=== PATIENT | female | born 1940 ===

== ENCOUNTER 2017-09-24 16:13 | Emergency (ER) | payer MEDICARE, MEDICAID ==
[2017-09-24 16:13] VITALS: PULSE 103; BMI 21.2
--- NOTE | 2017-09-24 17:43 | ED PDOC ---
HPI: Abdomen Time Seen by Provider: 09/24/17 16:40 Chief Complaint (Nursing): Abdominal Pain Chief Complaint (Provider): Abdominal pain History Per: Patient, Family History/Exam Limitations: no limitations Additional Complaint(s): Pt arrives with son who states patient c/o L sided back and abominal pain X 2 weeks, intermittent, associated with diarrhea. Denies fever, nausea, vomiting, symptoms. Also c/o swelling to both feet X 2 weeks. Denies CP, SOB. Past Medical History Reviewed: Nursing Documentation, Vital Signs Vital Signs: Last Vital Signs Temp 98.5 F 09/24/17 21:32 Pulse 98 H 09/24/17 21:32 Resp 17 09/24/17 21:32 BP 154/90 H 09/24/17 21:32 Pulse Ox 100 09/24/17 21:32 - Medical History PMH: Arthritis, Atrial Fibrillation, Back Problems, Cardia Arrhythmia (a fib), CHF, COPD, Diabetes (Has not taken medications in a while. ), Fractures (Lumbar vertebrae, right hip), HTN, Osteoporosis Denies: Asthma, Bronchitis, Emphysema, HIV, Pneumonia, Pulmonary Embolism, Chronic Kidney Disease, Sleep Apnea - Surgical History Surgical History: Back Surgery, - Family History Family History: States: Unknown Family Hx - Living Arrangements Living Arrangements: With Family - Social History Current smoker - smoking cessation education provided: No Alcohol: None - Immunization History Hx Tetanus Toxoid Vaccination: Yes (two years ago) Hx Influenza Vaccination: Yes Hx Pneumococcal Vaccination: No - Home Medications Home Medications: Ambulatory Orders Medication Instructions Recorded Digoxin [Lanoxin] 0.25 mg PO DAILY #0 tab 09/26/15 Acetaminophen/Oxycodone Hydr 1 tab PO Q8H PRN 11/07/15 [Percocet 10/325 mg Tab] Rivaroxaban [Xarelto] 20 mg PO DAILY 11/07/15 Metoprolol Tartrate [Lopressor] 50 mg PO Q12H #60 tab 11/08/15 Mirtazapine [Remeron Soltab] 30 mg PO HS #30 odt 11/08/15 Potassium Chloride [K-Dur 20] 20 meq PO DAILY #30 tab 11/08/15 Dicyclomine [Bentyl] 20 mg PO QID PRN #10 tab 09/24/17 - Allergies Allergies/Adverse Reactions: Allergies Allergy/AdvReac Type Severity Reaction Status Date / Time No Known Allergies Allergy Verified 09/24/17 16:25 Review of Systems Constitutional: Negative for: Fever, Chills Cardiovascular: Negative for: Chest Pain, Palpitations Respiratory: Negative for: Cough, Shortness of Breath Gastrointestinal: Positive for: Abdominal Pain. Negative for: Nausea, Vomiting , Diarrhea Genitourinary Female: Negative for: Dysuria, Hematuria Musculoskeletal: Negative for: Leg Pain Skin: Negative for: Rash, Lesions Neurological: Negative for: Headache Physical Exam - Reviewed Nursing Documentation Reviewed: Yes Vital Signs Reviewed: Yes - Physical Exam Appears: Positive for: Well, No Acute Distress Head Exam: Positive for: ATRAUMATIC, NORMAL INSPECTION Skin: Positive for: Normal Color, Warm, Dry Eye Exam: Positive for: Normal appearance, EOMI, PERRL Cardiovascular/Chest: Positive for: Regular Rate, Rhythm Respiratory: Positive for: Normal Breath Sounds Gastrointestinal/Abdominal: Positive for: Bowel Sounds, Soft, Tenderness ( Generalized). Negative for: Distended, Guarding, Rebound Back: Positive for: Normal Inspection Extremity: Positive for: Normal ROM, Pedal Edema Neurologic/Psych: Positive for: Alert, Oriented - Laboratory Results Result Diagrams: 09/24/17 17:30 09/24/17 17:30 - ECG Interpretation Of ECG: A fib. O2 Sat by Pulse Oximetry: 97 Medical Decision Making Medical Decision Makin yo female with abdominal pain X feet swelling. - labs - CT abd/pelvis - EKG - CXR - Doppler ultrasound Accession No. : [id number] Patient Name / ID : GERRY IRIS / [id number] Exam Date : 09/24/2017 17:10:44 ( Approved ) Study Comment : Sex / Age : F / 77Y Creator : Tapan Ruiz MD Dictator : Tapan Ruiz MD [employer] Ramp Attendant : Guide Tour : Tapan Ruiz MD Approver2 : Report Date : 09/24/2017 17:53:21 My Comment : Date of service: 09/24/2017 HISTORY: Abd pain COMPARISON: 04/30/2015. TECHNIQUE: Chest PA and lateral FINDINGS: LUNGS: Hyperinflation, manifestations of COPD. No active pulmonary disease. PLEURA: No significant pleural effusion identified. No pneumothorax apparent. CARDIOVASCULAR: Cardiomegaly. No evidence of acute, significant cardiovascular disease. OSSEOUS STRUCTURES: No significant abnormalities. Evidence of prior kyphoplasties unchanged lower thoracic and lumbar spine. VISUALIZED UPPER ABDOMEN: Normal. OTHER FINDINGS: None. IMPRESSION: No active pulmonary disease. Cardiomegaly without CHF. Accession No. : [id number] Patient Name / ID : GERRY IRIS / [id number] Exam Date : 09/24/2017 18:19:10 ( Approved ) Study Comment : Sex / Age : F / 77Y Creator : Matthew Morse MD Dictator : Matthew Morse MD Airport Ramp Attendant : Guide Tour : Matthew Morse MD Approver2 : Report Date : 09/25/2017 10:12:31 My Comment : Date of service: 09/24/2017 PROCEDURE: CT Abdomen and Pelvis with contrast HISTORY: Abd pain COMPARISON: Abdomen pelvis CT with contrast 11/07/2015. TECHNIQUE: Following the intravenous administration of iodinated contrast material, a CT examination of the abdomen and pelvis performed from the domes of the diaphragms to the symphysis pubis with reformatted datasets provided in axial, sagittal and coronal planes. Oral contrast was not administered as per referring physician request. Contrast dose: Omnipaque 300, 90 cc Radiation dose: Total exam DLP = 405.83 mGy-cm. This CT exam was performed using one or more of the following dose reduction techniques: Automated exposure control, adjustment of the mA and/or kV according to patient size, and/or use of iterative reconstruction technique. FINDINGS: LOWER THORAX: Prominent cardiomegaly reiterated with limited bilateral basilar ground-glass opacity. Borderline pulmonary vascular congestion. No pleural or pericardial effusion evident grossly. Increased fatty density, both intra and extra abdominal may reflect anasarca. Clinically correlate. LIVER: Limited nodularity of the surface of liver again suggests mild cirrhosis. . No gross lesion or ductal dilatation. GALLBLADDER AND BILE DUCTS: Prior cholecystectomy reiterated. Likely related limited dilatation of central intrahepatic biliary ducts. Common bile duct appears upper limits normal caliber. No radiodense choledocholithiasis associated. PANCREAS: Evident. SPLEEN: Unremarkable. ADRENALS: Unremarkable. No mass. KIDNEYS AND URETERS: Unremarkable. No hydronephrosis. No solid mass. VASCULATURE: Unremarkable. No aortic aneurysm. BOWEL: Unremarkable appearing. No obstruction. No pericolic or perienteric reactive change. Poor evaluation of the bowel correa due to lack of oral and intravenous contrast. APPENDIX: Normal appendix. PERITONEUM: Unremarkable. No free fluid. No free air. LYMPH NODES: Unremarkable. No enlarged lymph nodes. BLADDER: Unremarkable. REPRODUCTIVE: Unremarkable. BONES: No acute fracture. OTHER FINDINGS: None. IMPRESSION: No definite acute abdominal or pelvic findings appreciated. Mild hepatic cirrhosis again suggested. Incidental active CHF/anasarca suspected. Accession No. : [id number] Patient Name / ID : GERRY MARCELO / [id number] Exam Date : 09/24/2017 19:36:04 ( Approved ) Study Comment : Sex / Age : F / 77Y Creator : Tapan Ruiz MD Dictator : Tapan Ruiz MD Airport Ramp Attendant : Guide Tour : Tapan Ruiz MD Approver2 : Report Date : 09/25/2017 10:25:34 My Comment : Date of service: 09/24/2017 PROCEDURE: Bilateral lower extremity venous duplex Doppler. HISTORY: BLE swelling COMPARISON: None available. TECHNIQUE: Bilateral common femoral, superficial femoral, popliteal and posterior tibial veins were evaluated. Flow was assessed with color Doppler, compressibility, assessment of phasic flow and augmentation response. FINDINGS: COMMON FEMORAL VEIN: Right CFV: Unremarkable. Left CFV: Unremarkable. SUPERFICIAL FEMORAL VEIN: Right SFV: Unremarkable. Left SFV: Unremarkable. POPLITEAL VEIN: Right Popliteal: Unremarkable. Left Popliteal: Unremarkable. POSTERIOR TIBIAL VEIN: Right PTV: Unremarkable. Left PTV: Unremarkable. OTHER FINDINGS: None. IMPRESSION: No evidence of deep venous thrombosis. Disposition - Clinical Impression Clinical Impression: Abdominal pain, Pedal edema - Disposition Referrals: [facility] [Outside] [facility] [Outside] Disposition: Routine/Home Disposition Time: 21:15 Condition: STABLE Prescriptions: Dicyclomine [Bentyl] 20 mg PO QID PRN #10 tab PRN Reason: Pain, Moderate (4-7) Instructions: Dependent Edema (DC), Acute Abdomen (Belly Pain) Forms: [facility] (English) Print Language: SWEDISH
[2017-09-24] MEDS ORDERED: Sodium Chloride 0.9% 50 ML IV ONE (17:51)
[2017-09-24] MEDS ORDERED: Iohexol 300 100 ML IJ ONE (17:51)
--- NOTE | 2017-09-24 17:54 | RAD ---
Date of service: 09/24/2017 HISTORY: Abd pain COMPARISON: 04/30/2015. TECHNIQUE: Chest PA and lateral FINDINGS: LUNGS: Hyperinflation, manifestations of COPD. No active pulmonary disease. PLEURA: No significant pleural effusion identified. No pneumothorax apparent. CARDIOVASCULAR: Cardiomegaly. No evidence of acute, significant cardiovascular disease. OSSEOUS STRUCTURES: No significant abnormalities. Evidence of prior kyphoplasties unchanged lower thoracic and lumbar spine. VISUALIZED UPPER ABDOMEN: Normal. OTHER FINDINGS: None. IMPRESSION: No active pulmonary disease. Cardiomegaly without CHF.
[2017-09-24 17:55] LABS: BASO % 0.7 % (0.0-2.0); EOS # 0.1 K/uL (0.0-0.7); EOS % 1.6 % (0.0-4.0); HEMOGLOBIN 11.4 g/dL (12.0-16.0); INR 1.2; LYMPH # 2.1 K/uL (1.0-4.3); LYMPH % 46.5 % (20.0-40.0); MEAN CELL VOLUME 93.8 fl (81.0-99.0); MEAN CORPUSCULAR HEMOGLOBIN 30.1 pg (27.0-31.0); MEAN CORPUSCULAR HGB CONC 32.1 g/dL (33.0-37.0); MEAN PLATELET VOLUME 7.7 fl (7.2-11.7); MONO # 0.6 K/uL (0.0-0.8); MONO % 13.8 % (0.0-10.0); NEUT # 1.7 K/uL (1.8-7.0); NEUT % 37.4 % (50.0-75.0); NRBC % 0.1 % (0.0-0.0); PROTHROMBIN TIME 13.1 Seconds (9.8-13.1); RBC 3.79 Mil/uL (3.80-5.20); RED CELL DISTRIBUTION WIDTH 14.2 % (11.5-14.5); WHITE BLOOD COUNT 4.6 K/uL (4.8-10.8)
[2017-09-24 17:57] LABS: PARTIAL THROMBOPLASTIN TIME 34.2 Seconds (25.6-37.1)
[2017-09-24 18:05] LABS: ALB/GLOB RATIO 0.8 (1.0-2.1); ALBUMIN 3.6 g/dL (3.5-5.0); ALT/SGPT 27 U/L (9-52); AST/SGOT 49 U/L (14-36); BLOOD UREA NITROGEN 12 mg/dl (7-17); CALCIUM 8.6 mg/dL (8.4-10.2); GFR AFRICAN-AMERICAN > 60; GFR NON-AFRICAN AMERICAN > 60; LIPASE 332 U/L (23-300)
[2017-09-24 20:31] LABS: SQUAMOUS EPITHIAL 1 /hpf (0-5); URINE BILIRUBIN NEGATIVE (NEGATIVE); URINE BLOOD SMALL (NEGATIVE); URINE CLARITY CLEAR (Clear); URINE COLOR STRAW (YELLOW); URINE GLUCOSE (UA) NEG (Normal); URINE LEUKOCYTE ESTERASE NEG Leu/uL (Negative); URINE PROTEIN NEGATIVE (NEGATIVE); URINE UROBILINOGEN 0.2-1.0 mg/dL (0.2-1.0)
[2017-09-24 21:33] VITALS: BP 154/90; PULSE 98; RESP 17; TEMP 98.5
--- NOTE | 2017-09-25 06:09 | CARD ---
APPROVED REPORT Date of service: 09/24/2017 <Conclusion> Atrial fibrillation Abnormal ECG
--- NOTE | 2017-09-25 10:14 | CT ---
Date of service: 09/24/2017 PROCEDURE: CT Abdomen and Pelvis with contrast HISTORY: Abd pain COMPARISON: Abdomen pelvis CT with contrast 11/07/2015. TECHNIQUE: Following the intravenous administration of iodinated contrast material, a CT examination of the abdomen and pelvis performed from the domes of the diaphragms to the symphysis pubis with reformatted datasets provided in axial, sagittal and coronal planes. Oral contrast was not administered as per referring physician request. Contrast dose: Omnipaque 300, 90 cc Radiation dose: Total exam DLP = 405.83 mGy-cm. This CT exam was performed using one or more of the following dose reduction techniques: Automated exposure control, adjustment of the mA and/or kV according to patient size, and/or use of iterative reconstruction technique. FINDINGS: LOWER THORAX: Prominent cardiomegaly reiterated with limited bilateral basilar ground-glass opacity. Borderline pulmonary vascular congestion. No pleural or pericardial effusion evident grossly. Increased fatty density, both intra and extra abdominal may reflect anasarca. Clinically correlate. LIVER: Limited nodularity of the surface of liver again suggests mild cirrhosis. . No gross lesion or ductal dilatation. GALLBLADDER AND BILE DUCTS: Prior cholecystectomy reiterated. Likely related limited dilatation of central intrahepatic biliary ducts. Common bile duct appears upper limits normal caliber. No radiodense choledocholithiasis associated. PANCREAS: Evident. SPLEEN: Unremarkable. ADRENALS: Unremarkable. No mass. KIDNEYS AND URETERS: Unremarkable. No hydronephrosis. No solid mass. VASCULATURE: Unremarkable. No aortic aneurysm. BOWEL: Unremarkable appearing. No obstruction. No pericolic or perienteric reactive change. Poor evaluation of the bowel correa due to lack of oral and intravenous contrast. APPENDIX: Normal appendix. PERITONEUM: Unremarkable. No free fluid. No free air. LYMPH NODES: Unremarkable. No enlarged lymph nodes. BLADDER: Unremarkable. REPRODUCTIVE: Unremarkable. BONES: No acute fracture. OTHER FINDINGS: None. IMPRESSION: No definite acute abdominal or pelvic findings appreciated. Mild hepatic cirrhosis again suggested. Incidental active CHF/anasarca suspected.
--- NOTE | 2017-09-25 10:27 | US ---
Date of service: 09/24/2017 PROCEDURE: Bilateral lower extremity venous duplex Doppler. HISTORY: BLE swelling COMPARISON: None available. TECHNIQUE: Bilateral common femoral, superficial femoral, popliteal and posterior tibial veins were evaluated. Flow was assessed with color Doppler, compressibility, assessment of phasic flow and augmentation response. FINDINGS: COMMON FEMORAL VEIN: Right CFV: Unremarkable. Left CFV: Unremarkable. SUPERFICIAL FEMORAL VEIN: Right SFV: Unremarkable. Left SFV: Unremarkable. POPLITEAL VEIN: Right Popliteal: Unremarkable. Left Popliteal: Unremarkable. POSTERIOR TIBIAL VEIN: Right PTV: Unremarkable. Left PTV: Unremarkable. OTHER FINDINGS: None. IMPRESSION: No evidence of deep venous thrombosis. Concordant findings (preliminary report) provided by [facility].
[2017-09-27 12:39] VITALS: O2SAT 97
== END 2017-09-24 21:32 | disposition home or self-care (01) ==
LOC: H.ER 16:13
DX: R10.9 Unspecified abdominal pain (principal); R60.9 Edema, unspecified; E11.9 Type 2 diabetes mellitus without complications; I11.0 Hypertensive heart disease with heart failure; I50.9 Heart failure, unspecified; I48.91 Unspecified atrial fibrillation; J44.9 Chronic obstructive pulmonary disease, unspecified; M81.0 Age-related osteoporosis without current pathological fracture
CPT/HCPCS: 71046; 74177; 80053; 81003; 83690; 85025; 85610; 85730; 93005; 93970; 99283; Q9967

== ENCOUNTER 2018-06-29 00:25 | Emergency (ER) | payer MEDICARE, MEDICAID ==
[2018-06-29 00:26] VITALS: PULSE 103
--- NOTE | 2018-06-29 00:33 | ED PDOC ---
HPI:STROKE - Time Time: 00:28 - Historian Historian: Family - Chief Complaint Chief Complaint: Weakness, Mental status change - Onset Date: 06/29/18 Onset: Just prior to presenting (30 minutes) - Timing Timing: Currently Symptomatic - Location Location: Mental Status, Speech Locate left: Upper extremity - Associated Symptoms Associated symptoms:: Anticoagulant use (eliquis, aspirin but unclear if taking it because bottle was filled in april - and most of the bottle is full ) - Notes: Notes:: 77yo female with history of Afib, dementia, brought to ER by EMS and accompanied by son for evaluation of sudden onset change in mental status and speech. Per son, him and the patient were speaking normally when suddenly the patient started to "mumble incoherently" approximately 30 minutes prior to arrival. He also states the patient had left sided upper extremity weakness. NIHSS Stroke Scale - Date/Time Evaluation Performed Date Performed: 06/29/18 Time Performed: 00:28 When Was NIHSS Performed: Code Stroke - How Severe is the Stroke Level of Consciousness: 0=Alert (speaking jibberish) LOC to Questions: 2=Neither correct LOC to commands: 1=Obeys one correctly Best Gaze: 1=Partial gaze palsy Visual: 0=No visual loss Facial: 1=Minor asymmetry Motor Arm - Left: 2=Falls before 10 sec Motor Arm - Right: 0=No drift Motor Leg - Left: 1=Drift before 5 sec Motor Leg - Right: 0=No drift Limb Ataxia: 0=Absent Sensory: 0=Normal Best Language: 1=Mild to moderate aphasia Dysarthia: 1=Mild to moderate slurring Extinction & Inattention (Neglect): 1=Partial neglect (mild sachin-attention) Score: 11 rTPA Inclusion/Exclusion - Refusal of Treatment Patient Refused Treatment: No - Exclusion Criteria for Altepase Bleeding Diathesis Including but not limited to: Current use of oral anticoagulants w/ PT greater than 15 seconds - Warning to TPA With Conditions Condition: Recent intracranial hemorrhage Past Medical History Reviewed: Historical Data (as per records and family Tommy the son brought pt in, initial history as per him), Nursing Documentation, Vital Signs Primary Care Provider: Jj Miramontes - Medical History PMH: Arthritis, Atrial Fibrillation, Back Problems, Cardia Arrhythmia (a fib), CHF, COPD, Diabetes (Has not taken medications in a while. ), Fractures (Lumbar vertebrae, right hip), HTN, Osteoporosis Denies: Asthma, Bronchitis, Emphysema, HIV, Pneumonia, Pulmonary Embolism, Chronic Kidney Disease, Sleep Apnea - Surgical History Surgical History: Back Surgery, - Family History Family History: States: Unknown Family Hx - Living Arrangements Living Arrangements: With Family - Social History Current smoker - smoking cessation education provided: No - Immunization History Hx Tetanus Toxoid Vaccination: Yes (two years ago) Hx Influenza Vaccination: Yes Hx Pneumococcal Vaccination: No - Home Medications Home Medications: Ambulatory Orders Medication Instructions Recorded Apixaban [Eliquis] 2.5 mg PO BID 06/29/18 Aspirin [Ecotrin] 81 mg PO DAILY 06/29/18 Cyanocobalamin (Vitamin B-12) 1,000 mcg PO DAILY 06/29/18 [Vitamin B-12] Digoxin [Digitek] 125 mcg PO DAILY 06/29/18 Donepezil HCl [Aricept] 10 mg PO DAILY 06/29/18 Ginkgo Biloba 120 mg PO DAILY 06/29/18 Levothyroxine Sodium [Tirosint] 25 mcg PO DAILY 06/29/18 Melatonin 5 mg PO HS 06/29/18 Metoprolol Succinate [Kapspargo 50 mg PO DAILY 06/29/18 Sprinkle] Mirtazapine [Remeron] 30 mg PO HS 06/29/18 Omeprazole 20 mg PO DAILY 06/29/18 - Allergies Allergies/Adverse Reactions: Allergies Allergy/AdvReac Type Severity Reaction Status Date / Time No Known Allergies Allergy Verified 06/29/18 01:57 Review of Systems Review Of Systems: ROS cannot be obtained secondary to pt's inabilty to answer questions. Neurological: Positive for: Weakness (left upper arm), Change in Speech, Altered Mental Status Physical Exam - Reviewed Nursing Documentation Reviewed: Yes Vital Signs Reviewed: Yes - Physical Exam Appears: Positive for: No Acute Distress (speaking but talking non coherently) Head Exam: Positive for: NORMOCEPHALIC. Negative for: ATRAUMATIC (resolving (yellowish colored) non swollen hematoma noted to left side of forehead, darin cating possible old fall) Skin: Positive for: Normal Color ENT: Positive for: Normal ENT Inspection, Other (head turned to the right) Neck: Positive for: Normal Cardiovascular/Chest: Positive for: Regular Rate, Rhythm Respiratory: Positive for: Normal Breath Sounds, Other (airway intact). Negative for: Respiratory Distress Gastrointestinal/Abdominal: Positive for: Soft. Negative for: Tenderness Extremity: Positive for: Other (see NIH). Negative for: Pedal Edema, Deformity Neurological/Psych: Positive for: Awake, Alert, Motor/Sensory Deficits (left upper arm weakness), Other (right sided gaze; ). Negative for: Oriented, digital marketing executive II-XII - Laboratory Results Result Diagrams: 06/29/18 00:50 06/29/18 01:15 - ECG ECG: Positive for: Interpreted By Me, Viewed By Me ECG Rhythm: Positive for: Atrial Fibrillation Interpretation Of ECG: Rapid ventricular rate Rate: 120 O2 Sat by Pulse Oximetry: 95 (RA) Pulse Ox Interpretation: Normal - Core Measure Core Measure Indicators: Code Stroke - Critical Care Total Time (In Min): 60 Documented Critical Care: Time excludes all time spent performint seperately billable procedures Medical Decision Making Medical Decision Makin Patient brought in by EMS, r/o stroke Code stroke called in at this time 0030 Accucheck is 139 Plan: -- Labs -- EKG -- IV Fluids -- CT Head w/o contrast 0043 Patient is vomiting in room, provider at bedside Zofran IV ordered Cardizem ordered due to AFib on EKG, patient currently with stable blood pressure. 0106 Verbal report received from [facility], currently pending official read 0111 CT Head Findings: The ventricles and sulci are symmetric but prominent in size bilaterally. There are periventricular areas of low attenuation throughout the deep white matter. There is no evidence of acute hemorrhage or infarct. There is a small hyperdense lesion in the genu of the corpus callosum, between the frontal horn of the lateral ventricles in the left frontal lobe measuring 0.8 x 0.6 cm. A small peripheral calcification is seen within this lesion. There is no midline shift or extra-axial fluid collection. The osseous structures are unre markable. The visualized paranasal sinuses and mastoid air cells are clear. Impression: 1. No acute hemorrhage or infarct. 2. Findings are consistent with age-related atrophy and chronic small vessel ischemic disease. 3. Small hyperdense mass in the left genu of the corpus callosum, with small pe ripheral calcification. This is a nonspecific finding. Differential diagnosis includes a small meningioma versus a small aneurysm. If there is further clinical concern, MRI could be performed. Decision about TPA hinges on possible aneurysm finding on CT. Neurologist firefighter type one paged multiple times (Dr Pandey) no answer. Neurosurgeon firefighter type one (della) paged. [address] Dan, neurosurgery firefighter type one, who reviewed imaging and states the CT is indicative of an aneurysm and not meningioma. He is requesting transfer to [facility] 0121 Patient with second episode of bilious vomiting. Zofran 4mg IV ordered. vomiting thereafter resolved completely. [address] Roque, chief of neurosurgery at [facility], who accepts the patient for transfer. He has reviewed CT images. He states CTA Head will be done at [facility], and not to delay doing it here. 0131 Discussed further with family, Dane ramos, another one of the pts son at bedside. he is POA. He states patient reportedly fell 3 days ago but was fine in the interim. 0135 Discussed plan for transfer with family, who is agreeable. answered questions. Discussed with transfer center as well as ER CASSIUS Phillips at [facility] who is aware and agree w plan. Transfer initiated, JAYLA WALKER called Neurologist firefighter type one called x 3 more times, no call back as of now. 0150 Patient is not vomiting anymore, airway patent and vitals stable. Patient mildly tachycardic. Discussed extensively with Meme Edwards regarding potentila eed for endovascular neurosurgery and for observation under NICU, which is not available at this site. He is patient's son and POA, and is agreeable with plan for transfer. He has signed consent for transfer. He states on 06/27/18 patient thought she was in [place] but patient was able to be reoriented. The son states patient has had such episodes of confusion in the past and has history of dementia. He states since 06/27 patient has been walking, talking and back to baseline until tonight when she started talking gibberish while in bed, prompting her other son Tommy to call 911 Per Dane Edwards, currently at bedsidehe told the patient "if you know who I am, then squeeze my hand" and she did. 0155 Patient currently has her head above bed. No further episodes of vomiting in ER. airway intact. no further changes in neuro status. 0203 Labs reviewed, patient with troponin of 0.1640, also has low potassium Advanced Registered Nurse firefighter type one paged. [address] Nunez, special services director firefighter type one, states treat the Afib. HR at this time is 89 so responded to the cardizem will obviously hold ASA due to potential aneurysm. 0225 YEE in ER for transfer At this time, patient appears more alert however still mostly incoherent. keeps repeating "agua agua agua" but airway intact. breathing comfortably. no vomiting. Scribe Attestation: Documented by Charlotte Adams acting as a scribe for Juan Morales MD. Provider Scribe Attestation: All medical record entries made by the Scribe were at my direction and personall y dictated by me. I have reviewed the chart and agree that the record accurately reflects my personal performance of the history, physical exam, medical decision making, and the department course for this patient. I have also personally directed, reviewed, and agree with the discharge instructions and disposition. Disposition - Clinical Impression Clinical Impression: Weakness due to cerebrovascular accident, Intracranial aneurysm - Patient ED Disposition Is Patient to be Admitted: Yes - Disposition Disposition: Other Institution ([facility] for neurosurgical eval) Disposition Time: 01:15 Condition: GUARDED Instructions: Weakness (ED)
[2018-06-29 00:35] VITALS: BMI 21.9
[2018-06-29 00:38] VITALS: TEMP 97.8
[2018-06-29] MEDS ORDERED: Sodium Chloride 0.9% 1,000 ML IV SCH (00:45)
[2018-06-29 01:06] VITALS: RESP 19
[2018-06-29 01:06] LABS: BASO # 0.1 K/uL (0.0-0.2); BASO % 0.8 % (0.0-2.0); EOS # 0.4 K/uL (0.0-0.7); EOS % 5.4 % (0.0-4.0); HEMOGLOBIN 12.5 g/dL (12.0-16.0); LYMPH # 2.9 K/uL (1.0-4.3); LYMPH % 37.3 % (20.0-40.0); MEAN CELL VOLUME 92.5 fl (81.0-99.0); MEAN CORPUSCULAR HEMOGLOBIN 29.5 pg (27.0-31.0); MEAN CORPUSCULAR HGB CONC 31.8 g/dL (33.0-37.0); MEAN PLATELET VOLUME 7.3 fl (7.2-11.7); MONO # 0.7 K/uL (0.0-0.8); MONO % 9.6 % (0.0-10.0); NEUT # 3.6 K/uL (1.8-7.0); NEUT % 46.9 % (50.0-75.0); NRBC % 0.1 % (0.0-0.0); RBC 4.25 Mil/uL (3.80-5.20); RED CELL DISTRIBUTION WIDTH 14.6 % (11.5-14.5); WHITE BLOOD COUNT 7.7 K/uL (4.8-10.8)
[2018-06-29 01:45] LABS: ALB/GLOB RATIO 0.7 (1.0-2.1); ALBUMIN 3.4 g/dL (3.5-5.0); ALT/SGPT 21 U/L (9-52); AST/SGOT 34 U/L (14-36); BLOOD UREA NITROGEN 18 mg/dl (7-17); CALCIUM 8.4 mg/dL (8.4-10.2); GFR NON-AFRICAN AMERICAN > 60; HDL CHOLESTEROL 24 MG/DL (30-70)
[2018-06-29 01:56] LABS: LDL CHOLESTEROL 64 mg/dL (0-129)
[2018-06-29 02:29] VITALS: BP 165/83
[2018-06-29 04:37] VITALS: PULSE 120; O2SAT 95
--- NOTE | 2018-06-29 10:10 | CARD ---
APPROVED REPORT Date of service: 06/29/2018 EKG Measurement Heart [id number] <Conclusion> Atrial fibrillation with rapid ventricular response Non specific T-wave changes Abnormal ECG
--- NOTE | 2018-06-29 11:57 | CT ---
Date of service: 06/29/2018 PROCEDURE: CT HEAD WITHOUT CONTRAST. HISTORY: TIA, initial exam COMPARISON: Unenhanced head CT 04/08/[address] angiogram Head and Neck 10/20/2017. TECHNIQUE: Axial computed tomography images were obtained through the head/brain without intravenous contrast. Radiation dose: Total exam DLP = 950.58 mGy-cm. This CT exam was performed using one or more of the following dose reduction techniques: Automated exposure control, adjustment of the mA and/or kV according to patient size, and/or use of iterative reconstruction technique. FINDINGS: HEMORRHAGE: No intracranial hemorrhage. BRAIN: Good corticomedullary differentiation is seen. Reiterated diffuse cerebral atrophy and chronic microangiopathy. No suspicious extra-axial fluid collection is identified and the midline brain anatomy appears grossly nonfocal as imaged. No mass effect identified. 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 VENTRICLES: Unremarkable. No hydrocephalus. CALVARIUM: Unremarkable. PARANASAL SINUSES: Unremarkable as visualized. No significant inflammatory changes. MASTOID AIR CELLS: Unremarkable as visualized. No inflammatory changes. OTHER FINDINGS: None. IMPRESSION: No definite acute intracranial findings. 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 Concordant preliminary report from [facility], 06/29/2018, 1:10 a.m..
== END 2018-06-29 02:32 | disposition short-term general hospital (02) ==
LOC: H.ER 00:25
DX: R53.1 Weakness (principal); I67.1 Cerebral aneurysm, nonruptured; J44.9 Chronic obstructive pulmonary disease, unspecified; F03.90 Unspecified dementia, unspecified severity, without behavioral disturbance, psychotic disturbance, mood disturbance, and anxiety; E11.9 Type 2 diabetes mellitus without complications; E87.6 Hypokalemia; Z79.01 Long term (current) use of anticoagulants; Z79.82 Long term (current) use of aspirin; Z79.899 Other long term (current) drug therapy; I63.9 Cerebral infarction, unspecified; M81.0 Age-related osteoporosis without current pathological fracture
CPT/HCPCS: 36415; 70450; 80053; 80061; 82948; 83036; 84484; 85025; 86850; 86860; 86870; 86900; 93005; 96361; 96374; 96375; 96376; 99285; J2405; J7030